=== PATIENT | male | born 1965 | race Caucasian/White ===

== ENCOUNTER 2020-01-11 00:01 | Emergency (ER) | payer SELFPAY ==
[~2020-01-11] VITALS: Ht 170.2 cm; Wt 103.0 kg
[2020-01-11] MEDS ORDERED: DIPHENHYDRAMINE 50MG/ML VIAL IV ONE (00:30)
[2020-01-11] MEDS ORDERED: EPINEPHRINE 1:1000 1 MG/ML AMP INJ ONE (00:30)
[2020-01-11] MEDS ORDERED: FAMOTIDINE 20MG/2ML VIAL IV ONE (00:30)
[2020-01-11] MEDS ORDERED: PREDNISONE 20MG TABLET PO ONE (00:30)
[2020-01-11 03:27] VITALS: BP 150/99
== END 2020-01-11 03:30 | disposition home or self-care (01) ==
LOC: ER 00:01
DX: T78.2XXA Anaphylactic shock, unspecified, initial encounter (principal); R22.0 Localized swelling, mass and lump, head; F12.10 Cannabis abuse, uncomplicated
CPT/HCPCS: 96374; 96375; 99284; J1200; J3490; J7512